=== PATIENT | male | born 1945 | race Caucasian/White ===

== ENCOUNTER 2022-11-12 09:48 | Outpatient (OUT) | payer MEDICARE, OTHER, SELFPAY ==
--- NOTE | 2022-11-12 10:38 | CA_ITS ---
Patient: FILIPE VIDALES Exam Date: 11/12/2022 : 1945 Gender:M Ordering : ALEE CHRIS Admission #: [id number] Family : Order #: [id number] CLICK HERE TO VIEW EXAM ECHOCARDIOGRAM REPORT PROCEDURE: CA ECHO DOPPLER COMPLETE INDICATIONS: Mitral valve and Aortic valve stenosis, hypertension, PTCA COMPARISON: None. DESCRIPTION: COMPLETE ECHOCARDIOGRAM Real-time transthoracic echocardiography with 2D, M-mode, spectral and color flow Doppler performed. QUALITY: Technical quality was good. LEFT VENTRICLE: Normal chamber size. Borderline left ventricular hypertrophy. LV EF: Normal left ventricular ejection fraction, (>55%). DIASTOLIC: Unable to determine degree of diastolic dysfunction. ATRIAL SEPTUM: Visually appears intact. LEFT ATRIUM: Mild dilatation. RIGHT ATRIUM: Mild dilatation. RIGHT VENTRICLE: Normal chamber size. Normal right ventricular systolic function. TRICUSPID VALVE: Normal mobility and thickness. No regurgitation. Unable to assess right-sided pressures due to lack of measurable tricuspid regurgitation. MITRAL VALVE: Mildly thickened with normal mobility. Unable to assess the degree of mitral valve stenosis. Mild mitral annular calcification. No mitral regurgitation. AORTIC VALVE: Normal trileaflet appearance. Moderately calcified aortic valve. Doppler velocity suggests mild aortic valve stenosis. DVI 0.4, VTI 1.7 cm2. Mild aortic regurgitation. AORTIC ROOT: Normal diameter and appearance. PULMONIC VALVE: Not well visualized. No stenosis. No regurgitation. PERICARDIUM: No evidence of pericardial effusion. IVC: Collapses with inspirations. IVC is normal in size. CONCLUSION: 1. Global ventricular systolic function is normal; visually estimated ejection fraction is 60 to 65% 2. Borderline left ventricular hypertrophy 3. The right ventricle is normal in size and systolic function 4. Biatrial enlargement 5. Mild aortic valve stenosis, mild aortic valve regurgitation Adult Echocardiography Procedure Report Left Ventricle LVEDD (3.7 - 5.6 cm): 4.38 cm LVESD (2.2 - 4.0 cm): 2.25 cm LVIVS thickness (0.6 - 1.2 cm): 0.94 cm LVPW thickness (0.5 - 1.0 cm): 1.14 cm e': 0.11 m/s E - e': 8.18 LVOT Max Gradient: 3.73 mm[Hg], 5.16 mm[Hg] Peak Velocity (LVOT): 0.97 m/s, 1.14 m/s LVOT Diameter 2.45 cm Left Atrium LA Volume Index (2D A2C): 37.78 ml/m2 Left Atrium Systolic Dimension: 3.48 cm Mitral Valve MV E to A Ratio: 1.12 Mitral Valve A-Wave Peak Velocity: 0.78 m/s Mitral Valve E-Wave Peak Velocity: 0.88 m/s Right Ventricle Aorta AO Root Diam: 3.15 cm Ascending Ao Diam: 2.46 cm Aortic Valve AoV Area (Peak Saeid): 2.02 cm2, 3.23 cm2, 2.02 cm2 AoV Area (VTI): 1.71 cm2, 3.65 cm2, 1.71 cm2 Peak Velocity(Antegrade Flow): 1.40 m/s, 2.64 m/s Peak Gradient(Antegrade Flow): 7.87 mm[Hg], 27.88 mm[Hg] Mean Velocity(Antegrade Flow): 0.92 m/s, 1.78 m/s Mean Gradient(Antegrade Flow): 3.83 mm[Hg], 15.39 mm[Hg] Velocity Time Integral: 29.65 cm, 71.17 cm Tricuspid Valve Pulmonic Valve Peak Velocity: 0.75 m/s Peak Gradient: 2.26 mm[Hg] Right Atrium Right Atrium Systolic Pressure: 54.18 ml, 54.18 ml Dictated by: Gilbert Casas M.D. on 11/13/2022 at 14:59 Approved by: Gilbert Casas M.D. on 11/13/2022 at 15:04
== END 2022-11-12 09:49 | disposition home or self-care (01) ==
LOC: CARD 09:48
PROVIDERS: PCP Family Medicine; Visit Provider Nurse Practitioner
DX: I08.0 Rheumatic disorders of both mitral and aortic valves (principal)
CPT/HCPCS: 93306

== ENCOUNTER 2023-07-05 10:36 | Outpatient (OUT) | payer MEDICARE, OTHER, SELFPAY ==
[2023-07-05 12:08] LABS: Anion Gap 11.5; BUN Creatinine Ratio 19.1; Calcium 9.4 mg/dL (8.5-10.1); Carbon Dioxide 28.6 mmol/L (21.0-32.0); Chloride 104 mmol/L (98-107); Estimated GFR (African America 59 (>=60); Estimated GFR (Non-African Ame 49 (>=60); Glucose 75 mg/dL (74-106); Potassium 5.1 mmol/L (3.5-5.1); Sodium 139 mmol/L (136-145)
== END 2023-07-05 10:37 | disposition home or self-care (01) ==
LOC: LAB 10:37
PROVIDERS: PCP Family Medicine; Visit Provider Internal Medicine Cardiovascular Disease
DX: Z01.812 Encounter for preprocedural laboratory examination (principal); Z01.818 Encounter for other preprocedural examination
CPT/HCPCS: 36415; 80048